=== PATIENT | male | born 1955 | race African-American/Black ===

== ENCOUNTER 2021-08-03 11:44 | Emergency (ER) | payer MEDICAID, MEDICARE, SELFPAY ==
[~2021-08-03 11:44] MED LIST: Carvedilol 6.25 MG TAB PO SCH
[2021-08-03 12:38] LABS: #Lymphocytes 0.5 thou/uL (1.20-3.40); #Monocytes 0.2 thou/uL (0.11-0.59); #Neutrophils 3.1 thou/uL (1.40-6.50); %Basophils 0.7 % (0.0-1.0); %Eosinophils 0.3 % (0.0-10.0); %Lymphocytes 13.6 % (21.0-51.0); %Monocytes 6.1 % (0.0-10.0); %Neutrophils 79.3 % (42.0-75.0); Hemoglobin 7.5 g/dL (14.0-18.0); Mean Corpuscular HGB CONC 31.9 g/dL (32.0-36.0); Mean Corpuscular Hemoglobin 29.8 pg (27.0-31.0); Mean Corpuscular Volume 93.3 fL (78.0-98.0); Mean Platelet Volume 5.2 fL (7.4-10.4); Platelet Count 204 thou/uL (130-400); RBC Distribution Width 16.8 % (11.5-14.5); Red Blood Cell (RBC) Count 2.51 mill/uL (4.70-6.10); White Blood Cell (WBC) Count 3.9 thou/uL (4.8-10.8)
[2021-08-03 12:55] LABS: ALT (SGPT) 11 U/L (8-55); AST (SGOT) 12 U/L (5-34); Alkaline Phosphatase 70 U/L (40-110); Anion Gap 13 mmol/L (10-20); BUN (Urea Nitrogen) 12 mg/dL (8.4-25.7); Bilirubin, Total 0.2 mg/dL (0.2-1.2); Calc. Creatinine Clearance 0 mL/min (70-130); Calcium 8.4 mg/dL (7.8-10.44); Carbon Dioxide 26 mmol/L (23-31); Chloride 104 mmol/L (98-107); Globulin 2.8 g/dL (2.4-3.5); Glucose 149 mg/dL (80-115); Lipase 15 U/L (8-78); Protein, Total 5.8 g/dL (5.8-8.1); Sodium 141 mmol/L (136-145)
[2021-08-03 13:02] LABS: Bilirubin Negative (Negative); Blood, Urine Large (Negative); Clarity Slightly Cloudy (Clear); Glucose, Urine (Dipstick) Negative (Negative); Ketone, Urine Negative (Negative); Leukocyte Large (Negative); Nitrite Negative (Negative); Protein, Urine (Dipstick) Trace mg/dL (Neg-Trace); Urobilinogen 0.2 mg/dL (Less than 2)
[2021-08-03 13:05] LABS: RBC/HPF Greater than 50 HPF (0-3); WBC/HPF Greater than 50 HPF (0-3)
[2021-08-03 13:06] LABS: Bacteria/HPF 1+ HPF (None Seen)
[2021-08-03 13:13] LABS: Potassium 2.4 mmol/L (3.5-5.1)
[2021-08-03] MEDS ORDERED: Sodium Chloride 0.9% 1,000 ML ONE (13:26)
[2021-08-03] MEDS ORDERED: Ondansetron PF 4 MG/2 ML Vial ONE (13:26)
[2021-08-03] MEDS ORDERED: Morphine 4 MG/ML VIAL ONE (13:26)
[2021-08-03] MEDS ORDERED: Potassium Chloride 10 MEQ/100 ML PREMIX BAG ONE ×2 (13:56→21:18)
[2021-08-03 14:02] LABS: Magnesium 1.7 mg/dL (1.6-2.6)
[2021-08-03 14:20] LABS: SARS-CoV-2 NAA Rapid Test Not Detected (NotDetected)
[2021-08-03] MEDS ORDERED: cefTRIAXone\\ROCEPHIN 2 GM VIAL ONE (14:24)
[2021-08-03] MEDS ORDERED: Sodium Chloride 0.9% 100 ML ONE (14:24)
[2021-08-03] MEDS ORDERED: Potassium Chloride 20 MEQ TAB ONE (14:24)
[2021-08-03 18:47] LABS: Anion Gap 15 mmol/L (10-20); BUN (Urea Nitrogen) 10 mg/dL (8.4-25.7); Calc. Creatinine Clearance 0 mL/min (70-130); Calcium 8.2 mg/dL (7.8-10.44); Carbon Dioxide 25 mmol/L (23-31); Chloride 106 mmol/L (98-107); Glucose 181 mg/dL (80-115); Sodium 143 mmol/L (136-145)
[2021-08-03 18:55] LABS: Potassium 2.5 mmol/L (3.5-5.1)
[2021-08-03] MEDS ORDERED: metFORMIN 500 MG TAB PO SCH (21:00)
[2021-08-03] MEDS ORDERED: Magnesium Oxide 400 MG TAB PO SCH (21:00)
[2021-08-03] MEDS ORDERED: Atorvastatin Calcium 40 MG TAB PO SCH (21:00)
[2021-08-03] MEDS ORDERED: Potassium Chloride 10 MEQ in Premix Bag 1 BAG IVPB SCH (22:00)
[2021-08-04] MEDS ORDERED: Potassium Chloride 10 MEQ/100 ML PREMIX BAG ONE (01:39)
[2021-08-04 02:12] LABS: Anion Gap 12 mmol/L (10-20); BUN (Urea Nitrogen) 9 mg/dL (8.4-25.7); Calc. Creatinine Clearance 0 mL/min (70-130); Calcium 8.2 mg/dL (7.8-10.44); Carbon Dioxide 27 mmol/L (23-31); Chloride 109 mmol/L (98-107); Glucose 108 mg/dL (80-115); Sodium 145 mmol/L (136-145)
== END 2021-08-04 03:40 | disposition short-term general hospital (02) ==
LOC: NAV ERS 11:44
DX: E87.6 Hypokalemia (principal); N39.0 Urinary tract infection, site not specified; D64.9 Anemia, unspecified; K42.9 Umbilical hernia without obstruction or gangrene; G89.29 Other chronic pain; R10.30 Lower abdominal pain, unspecified; R33.9 Retention of urine, unspecified; I10 Essential (primary) hypertension; E11.9 Type 2 diabetes mellitus without complications; E78.5 Hyperlipidemia, unspecified; Z20.822 Contact with and (suspected) exposure to COVID-19; Z79.84 Long term (current) use of oral hypoglycemic drugs; Z79.899 Other long term (current) drug therapy
CPT/HCPCS: 36415; 36416; 51702; 51798; 74176; 80048; 80053; 81003; 81015; 83690; 83735; 85025; 87077; 87086; 87186; 93005; 94760; 96365; 96366; 96367; 96375; J0696; J2270; J2405; J3480; J3490; J7050; U0002

== ENCOUNTER 2021-08-23 11:02 | Emergency (ER) | payer MEDICARE ==
[2021-08-23 12:46] LABS: Bilirubin Negative (Negative); Blood, Urine Large (Negative); Glucose, Urine (Dipstick) Negative (Negative); Ketone, Urine Negative (Negative); Leukocyte Moderate (Negative); Nitrite Negative (Negative); Protein, Urine (Dipstick) 100 mg/dL (Neg-Trace); Specific Gravity, Urine 1.015 (1.005-1.030); Urobilinogen 0.2 mg/dL (Less than 2)
[2021-08-23 12:53] LABS: #Lymphocytes 0.5 thou/uL (1.20-3.40); #Monocytes 0.2 thou/uL (0.11-0.59); #Neutrophils 1.8 thou/uL (1.40-6.50); %Basophils 0.9 % (0.0-1.0); %Eosinophils 1.4 % (0.0-10.0); %Lymphocytes 19.9 % (21.0-51.0); %Monocytes 6.6 % (0.0-10.0); %Neutrophils 71.2 % (42.0-75.0); Mean Corpuscular HGB CONC 30.8 g/dL (32.0-36.0); Mean Corpuscular Hemoglobin 30.6 pg (27.0-31.0); Mean Corpuscular Volume 99.4 fL (78.0-98.0); Mean Platelet Volume 5.1 fL (7.4-10.4); Platelet Count 300 thou/uL (130-400); White Blood Cell (WBC) Count 2.6 thou/uL (4.8-10.8)
[2021-08-23 12:57] LABS: Bacteria/HPF Rare-Few HPF (None Seen); Clarity Hazy (Clear); RBC/HPF Greater than 50 HPF (0-3); Squamous Epithelial 0-3 HPF (0-3)
[2021-08-23 12:59] LABS: ALT (SGPT) 13 U/L (8-55); AST (SGOT) 14 U/L (5-34); Albumin 3.3 g/dL (3.4-4.8); Alkaline Phosphatase 68 U/L (40-110); Anion Gap 15 mmol/L (10-20); BUN (Urea Nitrogen) 9 mg/dL (8.4-25.7); Bilirubin, Total 0.6 mg/dL (0.2-1.2); Calc. Creatinine Clearance 0 mL/min (70-130); Calcium 9.1 mg/dL (7.8-10.44); Carbon Dioxide 20 mmol/L (23-31); Chloride 107 mmol/L (98-107); Globulin 3.9 g/dL (2.4-3.5); Glucose 81 mg/dL (80-115); Potassium 3.8 mmol/L (3.5-5.1); Protein, Total 7.2 g/dL (5.8-8.1); Sodium 138 mmol/L (136-145)
[2021-08-23 13:16] LABS: SARS-CoV-2 NAA Rapid Test Not Detected (NotDetected)
[2021-08-24] MEDS ORDERED: Cephalexin 250 MG CAP ONE (16:44)
[2021-08-24] MEDS ORDERED: Carvedilol 25 MG TAB ONE (16:44)
[2021-08-24] MEDS ORDERED: Aspirin Chewable 81 MG TAB ONE (16:44)
[2021-08-24] MEDS ORDERED: Clopidogrel Bisulfate 75 MG TAB ONE (16:44)
[2021-08-24] MEDS ORDERED: metFORMIN 500 MG TAB ONE (16:44)
[2021-08-24] MEDS ORDERED: Lantus 1000 UNITS/10 ML VIAL SC SCH (18:00)
[2021-08-24] MEDS ORDERED: Polyethylene Glycol 3350 17 GM Packet PO SCH (18:00)
[2021-08-24] MEDS ORDERED: Magnesium Oxide 400 MG TAB PO SCH (18:00)
[2021-08-24] MEDS ORDERED: Atorvastatin Calcium 40 MG TAB PO SCH (21:00)
[2021-08-25 07:33] LABS: #Eosinphils 0.1 thou/uL (0.0-0.7); #Lymphocytes 0.6 thou/uL (1.20-3.40); #Monocytes 0.3 thou/uL (0.11-0.59); #Neutrophils 2.5 thou/uL (1.40-6.50); %Basophils 0.6 % (0.0-1.0); %Eosinophils 1.9 % (0.0-10.0); %Lymphocytes 16.8 % (21.0-51.0); %Monocytes 9.1 % (0.0-10.0); %Neutrophils 71.6 % (42.0-75.0); Hemoglobin 9.2 g/dL (14.0-18.0); Mean Corpuscular HGB CONC 31.4 g/dL (32.0-36.0); Mean Corpuscular Hemoglobin 29.9 pg (27.0-31.0); Mean Corpuscular Volume 95.3 fL (78.0-98.0); Platelet Count 282 thou/uL (130-400); RBC Distribution Width 16.2 % (11.5-14.5); Red Blood Cell (RBC) Count 3.09 mill/uL (4.70-6.10); White Blood Cell (WBC) Count 3.5 thou/uL (4.8-10.8)
[2021-08-25 07:47] LABS: ALT (SGPT) 10 U/L (8-55); AST (SGOT) 11 U/L (5-34); Albumin 2.9 g/dL (3.4-4.8); Alkaline Phosphatase 62 U/L (40-110); Anion Gap 12 mmol/L (10-20); BUN (Urea Nitrogen) 11 mg/dL (8.4-25.7); Bilirubin, Total 0.4 mg/dL (0.2-1.2); Calc. Creatinine Clearance 0 mL/min (70-130); Calcium 8.6 mg/dL (7.8-10.44); Carbon Dioxide 23 mmol/L (23-31); Chloride 108 mmol/L (98-107); Globulin 3.2 g/dL (2.4-3.5); Potassium 3.9 mmol/L (3.5-5.1); Protein, Total 6.1 g/dL (5.8-8.1); Sodium 139 mmol/L (136-145)
[2021-08-25 07:57] LABS: Glucose 55 mg/dL (80-115)
[2021-08-25] MEDS ORDERED: Magnesium Oxide 400 MG TAB PO SCH (09:00)
[2021-08-25] MEDS ORDERED: Polyethylene Glycol 3350 17 GM Packet PO SCH (09:00)
[2021-08-25] MEDS ORDERED: Lantus 1000 UNITS/10 ML VIAL SC SCH (09:00)
[2021-08-25 13:08] LABS: Magnesium 1.7 mg/dL (1.6-2.6)
== END 2021-08-23 14:05 | disposition home or self-care (01) ==
LOC: NAV ERS 11:02
DX: T83.091A Other mechanical complication of indwelling urethral catheter, initial encounter (principal); C18.9 Malignant neoplasm of colon, unspecified; N39.0 Urinary tract infection, site not specified; R53.1 Weakness; I10 Essential (primary) hypertension; E11.9 Type 2 diabetes mellitus without complications; E78.5 Hyperlipidemia, unspecified; Z20.822 Contact with and (suspected) exposure to COVID-19
CPT/HCPCS: 36416; 51702; 80053; 81003; 81015; 83735; 85025; 87077; 87086; 87186; U0002